=== PATIENT | male | born 1995 | race Caucasian/White ===

== ENCOUNTER 2019-11-23 09:04 | Day surgery (SDC) | payer BC, OTHER ==
[2019-11-23 10:51] LABS: HEMATOCRIT 45.4 % (37.9-51.0); HEMOGLOBIN 16.1 g/dL (13.5-17.0); MEAN CORPUSCULAR HEMOGLOBIN 30.2 pg (27.0-33.4); MEAN CORPUSCULAR HGB CONC 35.4 g/dL (32.0-36.0); MEAN CORPUSCULAR VOLUME 85 fl (80-97); PLATELET COUNT 218 10^3/uL (150-450); RED BLOOD COUNT 5.32 10^6/uL (4.35-5.55); RED CELL DISTRIBUTION WIDTH 12.5 % (11.5-14.0)
[2019-11-23 10:58] LABS: INTERNATIONAL RATION (INR) 0.95; PROTHROMBIN TIME 12.7 SEC (11.4-15.4)
[2019-11-23 10:59] LABS: PARTIAL THROMBOPLASTIN TIME 28.4 SEC (23.5-35.8)
[2019-11-23] MEDS ORDERED: MIDAZOLAM 2 MG/2 ML INJ ONE (11:46)
[2019-11-23] MEDS ORDERED: FENTANYL CITRATE INJ/PF 100 MCG/2 ML AMPUL ONE (11:46)
--- NOTE | 2019-11-23 14:41 | RADIOLOGY REPORT (SQ) ---
EXAM DESCRIPTION: CT BIOPSY BONE DEEP; CT NEEDLE PLACEMENT IMAGES COMPLETED DATE/TIME: 11/23/2019 12:49 pm REASON FOR STUDY: BENING NEOPLASM OF PELVIC BONES; BENING NEOPLASM OF PELVIC BONES, BONE BIOPSY D16. 8 BENIGN NEOPLASM OF PELVIC BONES, SACRUM AND COCCYX COMPARISON: None. FLUORO TIME: 8 seconds. 114 images submitted to PACS. LIMITATIONS: None. PROCEDURE: The procedure, risks, benefits, and alternatives were discussed with the patient in the p reprocedural area, and all questions were answered. Informed consent was obtained verbally and in wri ting. The patient was then brought to the CT suite, positioned prone on the CT gurney, and a time-out was p erformed. After that, axial images of the abdomen were obtained for targeting of the area of scleros is in the sacrum. Based on review of the axial images an appropriate access site was selected on the intergluteal cleft. The area around selected access site was then prepped and draped with 2% chlorhexidine utilizing andrés dard sterile technique. After that, the access site was infiltrated 1% lidocaine and an incision was made in the skin with a #11 blade. An 11 gauge Osteo-Site Alex coaxial needle was then advanced in to the area of sclerosis in the sacrum. After that, the inner stylet of the coaxial needle was replac ed for a 13 gauge biopsy needle. 3 core samples and 10 mL of aspirate were then obtained and submitte d to Pathology. The cannula of the Osteo-Site Alex coaxial needle was then removed and a sterile dr essing was applied over the access site. The patient tolerated the procedure well without immediate complication. At the end of the procedure the patient's condition was unchanged from the preprocedural baseline. IV conscious sedation was administered at the direction of the performing physician by a ilia machado. 1 milligrams of Versed and 100 micrograms of fentanyl. Physiologic monitoring was provided befo re, during, and after sedation. The total sedation time was 30 minutes. Documentation of [id number] time the proceduralist spent monitoring the patient: 15 minutes. IMPRESSION: Successful CT-guided biopsy of the area of sclerosis in the sacrum as detailed above. COMMENT: Patient medication list reviewed: Yes- Quality ID# 130:Eligible professional attests to doc umenting in the medical record they obtained, updated, or reviewed the patient's current medications. Quality ID #76: The patient was prepped and draped using maximum sterile barrier technique including cap, mask, sterile gown, sterile gloves, a large sterile sheet, hand hygiene, and 2% Chlorhexidine fo r cutaneous antisepsis. When ultrasound is used, sterile ultrasound techniques are followed requiring sterile gel and sterile probes. Quality ID 145: Final reports for procedures using fluoroscopy that document radiation exposure torey molly, or exposure time and number of fluorographic images (if radiation exposure indices are not avail able) Quality ID# 436: Final reports with documentation of one or more dose reduction techniques (e.g., Aut omated exposure control, adjustment of the mA and/or kV according to patient size, use of iterative r econstruction technique) TECHNICAL DOCUMENTATION: JOB ID: [id number] 2010 [employer]- All Rights Reserved rev Reading location - IP/workstation name: [email or web address]
[2019-11-23 16:52] VITALS: BP 128/86
== END 2019-11-23 14:30 | disposition home or self-care (01) ==
LOC: RAD 09:04
PROVIDERS: ATTEND Family Medicine
DX: D16.8 Benign neoplasm of pelvic bones, sacrum and coccyx (principal); G95.89 Other specified diseases of spinal cord
CPT/HCPCS: 36415; 84520; 85027; 85610; 85730; 88311; 77012; 20225; J2250; J3010